=== PATIENT | female | born 1955 | race African-American/Black ===

== ENCOUNTER → 2017-11-25 | Outpatient (CLI) | payer BC ==
[~2017-11-25] MED LIST: ACET-24 PO; ASPI-320 PO; B COCAP3 PO; BUPR150T5 PO; CHOL1000 PO; CLON0.1T12 PO; DLD/2 PO; FRRG PO; INDO75CA PO; LISI40TA3 PO; LSX80 PO; MELA3CAP PO; OMEG10007 PO; ONDA4TAB65 PO; POTA-639 PO; TAPE1TAB9 PO; VNTHFA/IN INH
[2017-11-25 09:31] LABS: BASO % 0.3 %; BASO ABS # 0.02 K/uL (0-0.2); EOS % 0.8 %; EOS ABS # 0.05 K/uL (0-0.5); HEMATOCRIT 37.4 % (37-47); HEMOGLOBIN 11.8 g/dL (12.0-16.0); IG# 0.01 K/uL (0.00-0.02); LYMPH % 31.2 %; LYMPH ABS # 1.84 K/uL (1.2-3.4); MEAN CELL VOLUME 84.4 fL (80-100); MEAN CORPUSCULAR HEMOGLOBIN 26.6 pg (25-34); MEAN CORPUSCULAR HGB CONC 31.6 g/dl (32-36); MEAN PLATELET VOLUME 10.3 fL (7.4-10.4); MONO % 6.3 %; MONO ABS # 0.37 K/uL (0.11-0.59); NEUT % 61.2 %; NEUT ABS # 3.61 K/uL (1.4-6.5); PLATELET COUNT 291 K/uL (130-400); RED CELL DISTRIBUTION WIDTH CV 15.6 % (11.5-14.5); RED CELL DISTRIBUTION WIDTH SD 48.4 fL (36.4-46.3)
[2017-11-25 09:42] LABS: INR 0.9 (0.9-1.1)
== END | disposition home or self-care (01) ==
LOC: C.LAB 08:38
PROVIDERS: ATTEND Orthopaedic Surgery Sports Medicine
DX: Z01.812 Encounter for preprocedural laboratory examination (principal); M17.11 Unilateral primary osteoarthritis, right knee

== ENCOUNTER → 2018-01-08 | Day surgery (SDC) | payer BC ==
[2018-01-07 15:24] VITALS: Ht 157.5 cm; Wt 143.2 kg
[~2018-01-08] VITALS: Ht 157.5 cm; Wt 143.2 kg
[~2018-01-08] MED LIST changes: -ACET-24 PO; -ASPI-320 PO; -DLD/2 PO; -FRRG PO; -LISI40TA3 PO; +LSN40 PO; -ONDA4TAB65 PO; -POTA-639 PO; +POTA20TA16 PO; +SODIUM CHLORIDE 0.9% 500ML 500 ML IV ONE
--- NOTE | 2018-01-08 10:16 | Endo History and Physical ---
History & Physical Date of Service: Jan 08, 2018. Chief Complaint: Referring Physician: History of Present Illness 62 yo presenting for EGD for Chronic nausea. Past Surgical History Hx Cardiac Surgery: No Hx Internal Defibrillator: No Hx Pacemaker: No Hx Abdominal Surgery: Yes (HYSTERECTOMY WITH OVARY REMOVAL X1, UMBILICAL HERNIA ) Hx of Implantable Prosthesis: No Hx Post-Op Nausea and Vomiting: Yes (SEVERE PONV) Hx Cancer Surgery: No Hx Thoracic Surgery: No Hx Orthopedic: Yes (BILAT BRACHIOPLASTY, L DELORIS) Hx Urinary Tract Surgery: No Family History None Social History Smoking Status: Never Smoker Hx Substance Use: No Hx Alcohol Use: No Allergies Coded Allergies: Tramadol (Verified Adverse Reaction, Severe, severe nausea, 01/07/18) Codeine (Verified Adverse Reaction, Unknown, SEVERE NAUSEA, 01/07/18) Current Medications Reported Home Medications Medications Dose Route/Sig Max Daily Dose Days Date Category Nucynta Er (Tapentadol Hcl) 50 Mg Tab 50 Mg PO QAM 01/07/18 Reported Klor-Con (Potassium Chloride) 20 Meq Tabcr 40 Meq PO QPM 11/20/17 Reported Vitamin D3 (Cholecalciferol) 1,000 Unit Tab 1,000 Units PO QPM 11/20/17 Reported [place]-3 (Fish Oil) 1 Ea Cap 1 Cap PO QPM 11/20/17 Reported Melatonin 3 Mg Cap 3 Mg PO HS 11/20/17 Reported Bupropion Hcl Xl (Bupropion Hcl) 150 Mg Tab 150 Mg PO QPM 11/20/17 Reported Lisinopril 40 Mg Tab 40 Mg PO QAM 11/20/17 Reported Ventolin Hfa (Albuterol) 200 Puffs/74340 Mcg Aers 1-2 Puffs INH Q6H PRN 09/08/17 Reported Vitamin B Complex-C (B Complex W/ C) 1 Cap Cap 1 Tab PO QPM 09/08/17 Reported Indocin Ext Rel (Indomethacin) 75 Mg Capcr 75 Mg PO QAM 09/08/17 Reported Furosemide 80 Mg Tab 120 Mg PO QAM 11/21/14 Reported Vital Signs Weight (Kilograms): 143.18 Height (Feet): 5 Height (Inches): 2 Physical Exam General Appearance: WD/WN, no apparent distress Respiratory/Chest: Respiratory effort: no dyspnea Auscultation: breath sounds normal Cardiovascular: Apical Impulse: not displaced Heart Auscultation: RRR, normal S1 Abdomen: Bowel Sounds: normal Inspection & Palpation: soft, non-distended Assessment and Plan 62 yo presenting for evaluation of nausea for EGD
--- NOTE | 2018-01-08 10:59 | GI REPORT ---
Procedure Date: 01/08/2018 10:16 AM Procedure: Upper GI endoscopy Indications: Nausea Medicines: Monitored Anesthesia Care Complications: No immediate complications. Estimated blood loss: None. Estimated Blood Loss: Estimated blood loss: none. Procedure: Pre-Anesthesia Assessment: - Pre-Anesthesia Assessment: - Prior to the procedure, a History and Physical was performed, and patient medications, allergies and sensitivities were reviewed. The patient's tolerance of previous anesthesia was reviewed. Please see [employer] for complete details. - The risks and benefits of the procedure and the sedation options and risks were discussed with the patient. All questions were answered and informed consent was obtained. - Patient identification and proposed procedure were verified prior to the procedure by the physician and the nurse. The procedure was verified in the pre-procedure area in the procedure room. After obtaining informed consent, the endoscope was passed carefully and meticuously under direct vision and only advanced when the lumen was clearly identified, C02 insuflation was utilized throughout the entirity of the procedure. Throughout the procedure, the patient's blood pressure, pulse, and oxygen saturations were monitored continuously. After obtaining informed consent, the endoscope was passed under direct vision. Throughout the procedure, the patient's blood pressure, pulse, and oxygen saturations were monitored continuously. The Scope was introduced through the mouth, and advanced to the second part of duodenum. The upper GI endoscopy was accomplished without difficulty. The patient tolerated the procedure well. Findings: LA Grade A (one or more mucosal breaks less than 5 mm, not extending between tops of 2 mucosal folds) esophagitis with no bleeding was found. Localized mild inflammation characterized by erythema was found in the gastric body. Biopsies were taken with a cold forceps for histology. The examined duodenum was normal. Impression: - LA Grade A reflux esophagitis. - Gastritis. Biopsied. - Normal examined duodenum. Recommendation: - Await pathology results. - Discharge patient to home (with escort). - Use Prilosec (omeprazole) 40 mg PO BID for 2 months. - Avoid NSAIDs - Return to referring physician as previously scheduled. Norman Matias MD 01/08/2018 10:59:02 AM This report has been signed electronically. Note Initiated On: 01/08/2018 10:16 AM I attest to the content of the Intraoperative Record and orders documented therein, exceptions below
--- NOTE | 2018-01-08 11:04 | Discharge Instructions ---
Endoscopy Patient Instructions Date / Procedure(s) Performed Jan 08, 2018. EGD Allergy Information Coded Allergies: Tramadol (Verified Adverse Reaction, Severe, severe nausea, 01/07/18) Codeine (Verified Adverse Reaction, Unknown, SEVERE NAUSEA, 01/07/18) Discharge Date / Findings Jan 08, 2018. Mild esophagitis as well as gastritis. Biopsies were taken Increase your Prilosec to 40 mg twice daily (Rx written and sent to Pharmacy) Avoid NSAIDs Provider Instructions Activity Restrictions - No exercising or heavy lifting for 24 hours. - Do not drink alcohol the day of the procedure. - Do not drive a car or operate machinery until the day after the procedure. - Do not make any important decisions or sign important papers in 24 hours after the procedure. Following Day: - Return to full activity which may include returning to work/school. Diet Start your diet with liquids and light foods (jello, soup, juice, toast). Then eat your usual diet if not nauseated. Treatment For Common After Affects For mild abdominal pain, bloating, or excessive gas: - Rest - Eat lightly - Lie on right side Follow-Up Information Follow-up with Carol Carrero as scheduled Anesthesia Information What You Should Know You have had a procedure that required some medicine to reduce anxiety and discomfort. This treatment is called moderate sedation. After receiving the treatment, you may be sleepy, but you will be able to breathe on your own. The effects of the treatment may last for several hours. Follow these instructions along with Activity/Diet recommendations noted above: * Do NOT do anything where dizziness or clumsiness would be dangerous. * Rest quietly at home today, then you can be up and about tomorrow. * Have a responsible person stay with you the rest of today. * You may have had an I.V. today. If so, you may take the dressing off later today. Recommendations Call your doctor if: * Trouble breathing * Continuous vomiting for more than 24 hours * Temperature above 101 degrees * Severe abdominal pain or bloating * Pain not relieved by pain medicine ordered * There is increased drainage or redness from any incision * A large amount of rectal bleeding greater than 2-3 tablespoons. (If you had a polyp/s removed or have hemorrhoids, a small amount of blood - from the rectum is to be expected.) * You have any unanswered questions or concerns. IN THE EVENT OF A SERIOUS EMERGENCY, GO TO THE NEAREST EMERGENCY ROOM Your discharge instructions were prepared by provider Norman Matias. Patient Instructions Signature Page [facility] [place] Patient (or Guardian) Signature/Date: I have read and understand the instructions given to me by my caregivers. Caregiver/RN/Doctor Signature/Date: The above-named patient and/or guardian has received patient instructions on this date. + Original Patient Signature Page (only) stays with chart. Please make copy for patient.
[2018-01-08 11:28] VITALS: BP 114/88; PULSE 59; O2SAT 96
--- NOTE | 2018-01-08 12:04 | Anesthesiology Progress Note ---
Anesthesia Post Op Note Date & Time Jan 08, 2018 at 12:04 Vital Signs Vital Signs Past 12 Hours Date Time Temp Pulse Resp B/P (MAP) Pulse Ox O2 Delivery O2 Flow Rate FiO2 01/08/18 11:28 59 20 114/88 (97) 96 Room Air 01/08/18 11:13 80 20 136/77 (96) 96 Room Air 01/08/18 10:57 84 20 132/91 (105) 95 Room Air 01/08/18 10:24 37.3 81 20 160/78 (105) 98 Room Air Notes Mental Status: alert / awake / arousable, participated in evaluation Pt Amnestic to Procedure: Yes Nausea / Vomiting: adequately controlled Pain: adequately controlled Airway Patency, RR, SpO2: stable & adequate BP & HR: stable & adequate Hydration State: stable & adequate Anesthetic Complications: no major complications apparent
== END | disposition home or self-care (01) ==
LOC: C.GI 09:58
PROVIDERS: ATTEND Internal Medicine
DX: R11.0 Nausea (principal); R19.7 Diarrhea, unspecified; K29.50 Unspecified chronic gastritis without bleeding; K20.9 Esophagitis, unspecified; J45.909 Unspecified asthma, uncomplicated; Z88.5 Allergy status to narcotic agent; Z90.710 Acquired absence of both cervix and uterus; Z90.721 Acquired absence of ovaries, unilateral; Z96.642 Presence of left artificial hip joint

== ENCOUNTER → 2018-03-23 | Outpatient (CLI) | payer BC ==
[~2018-03-23] MED LIST changes: +POTA-639 PO; -POTA20TA16 PO; -SODIUM CHLORIDE 0.9% 500ML 500 ML IV ONE
[2018-03-23 11:01] LABS: BASO % 0.3 %; BASO ABS # 0.02 K/uL (0-0.2); EOS ABS # 0.06 K/uL (0-0.5); HEMATOCRIT 39.5 % (37-47); HEMOGLOBIN 12.3 g/dL (12.0-16.0); IG# 0.01 K/uL (0.00-0.02); LYMPH % 29.9 %; LYMPH ABS # 1.77 K/uL (1.2-3.4); MEAN CELL VOLUME 85.5 fL (80-100); MEAN CORPUSCULAR HEMOGLOBIN 26.6 pg (25-34); MEAN CORPUSCULAR HGB CONC 31.1 g/dl (32-36); MEAN PLATELET VOLUME 10.1 fL (7.4-10.4); MONO % 6.6 %; MONO ABS # 0.39 K/uL (0.11-0.59); NEUT ABS # 3.66 K/uL (1.4-6.5); PLATELET COUNT 330 K/uL (130-400); RED CELL DISTRIBUTION WIDTH CV 16.1 % (11.5-14.5); RED CELL DISTRIBUTION WIDTH SD 50.5 fL (36.4-46.3); WHITE BLOOD COUNT 5.91 K/uL (4.8-10.8)
[2018-03-23 11:09] LABS: INR 0.9 (0.9-1.1)
[2018-03-23 11:27] LABS: BLOOD UREA NITROGEN 23 mg/dl (7-18); CALCIUM 9.3 mg/dl (8.5-10.1); CARBON DIOXIDE 27 mmol/L (21-32); CREATININE 1.09 mg/dl (0.60-1.20); GLUCOSE 98 mg/dl (70-99); POTASSIUM 4.3 mmol/L (3.5-5.1); SODIUM 136 mmol/L (136-145)
== END | disposition home or self-care (01) ==
LOC: C.LABBC 08:49
PROVIDERS: ATTEND Orthopaedic Surgery Sports Medicine
DX: Z01.818 Encounter for other preprocedural examination (principal)